=== PATIENT | female | born 1980 | race Caucasian/White ===

== ENCOUNTER 2021-11-26 10:52 | Emergency (ER) | payer OTHER, SELFPAY ==
--- NOTE | 2021-11-26 11:03 | ED.WOUNDLAC ---
HPI - Wound/Laceration General Chief Complaint: Wound/Laceration Stated Complaint: Laceration on head Time Seen by Provider: 11/26/21 11:03 Source: patient, family and RN notes reviewed Mode of arrival: ambulatory Limitations: no limitations History of Present Illness HPI narrative: 41-year-old female presents to the [facility] with a laceration to the top of her head. States that a 2 gallon sprayer bottle fell on the top of her head. Bleeding is controlled. Reports that she is up-to-date on tetanus (2020) Denies any blurry vision or change in vision. Denies any loss of consciousness. Denies headache Related Data Home Medications Medication Instructions Recorded Confirmed escitalopram oxalate [Lexapro] 5 mg PO DAILY 11/26/21 11/26/21 Allergies Allergy/AdvReac Type Severity Reaction Status Date / Time No Known Allergies Allergy Verified 11/26/21 11:11 Review of Systems Review of Systems: All systems reviewed & are unremarkable except as noted in HPI and below Constitutional: Constitutional: Reports no additional constitutional complaints, Denies chills and Denies fever(s) Eyes: Eyes: Reports no additional eye complaints ENT: Reports system reviewed and no additional complaints, except as documented Cardiovascular: Cardiovascular: Reports no additional cardiovascular complaints, Denies chest pain and Denies dyspnea Respiratory: Respiratory: Reports no additional respiratory complaints, Denies cough and Denies dyspnea Gastrointestinal: Gastrointestinal: Reports no additional gastrointestinal complaints, Denies abdominal pain, Denies nausea and Denies vomiting Musculoskeletal: Musculoskeletal: Reports no additional musculoskeletal complaints Integumentary/Breasts: Skin/Breast: Reports as per HPI Comments: Laceration top of head/ scalp Neurologic: Reports system reviewed and no additional complaints, except as documented Psychiatric: Psychiatric: Reports no additional psychiatric complaints Allergic/Immunologic: Allergic/Immunologic: Reports no additional allergic/immunologic complaints PMFSH Past Medical History Medical History (Updated 11/26/21 @ 11:28 by Maritza Baumann) Anxiety Comments At the time of my signature, I reviewed and agree with the nursing past medical, surgical, social, and family history. There is no relevant family history pertinent to the patient complaint. Exam Const: General: healthy appearing, no acute distress and alert Nutritional Appearance: well nourished Orientation/consciousness: patient oriented x3 Limitations: no limitations HENMT: Head: normal to inspection Ears: external ears normal General nose exam: Normal external nose present Face and sinus: normal facial exam Mouth: Yes Normal oral and palatal mucosa present Eyes: Pupils: Equal, round and reactive pupils present Neck: Neck: normal visual inspection, no lymphadenopathy and no meningeal signs Chest: Chest palpation & inspection: normal inspection of the chest Resp: Effort & Inspection: normal respiratory effort and no use of accessory muscles Auscultation: clear to auscultation bilaterally, no crackles, no rales, no rhonchi and no wheezes Cardio: Rate: regular rate Rhythm: regular rhythm : General: Yes no CVA tenderness Back/Spine/Pelvis: Back: no CVA tenderness Skin: General skin exam: normal color Wounds: wounds noted laceration size (1.5); without any surrounding erythema Neuro: General: patient oriented x3, moves all extremities, no meningeal signs and no focal motor deficits Cranial nerves: Yes Equal, round and reactive pupils present Speech: normal speech Gait exam (Neuro): Normal gait present Extrem: General: normal to inspection Psych: Appearance: grossly normal and well kempt Mental Status: mental status grossly normal Affect: normal affect Attitude: cooperative Thought content: Yes Normal thought content present Course Course Emergency Course: Discharge instructions reviewed w
[2021-11-26 11:05] VITALS: BP 123/85; PULSE 72; RESP 16; TEMP 36.8; O2SAT 98
== END 2021-11-26 11:18 | disposition home or self-care (01) ==
PROVIDERS: Emergency Provider Nurse Practitioner
DX: S01.01XA Laceration without foreign body of scalp, initial encounter (principal); W20.8XXA Other cause of strike by thrown, projected or falling object, initial encounter; F41.9 Anxiety disorder, unspecified
CPT/HCPCS: 12001; 99212; G0463

== ENCOUNTER → 2022-03-27 01:47 | Outpatient (CLI) | payer OTHER, SELFPAY ==
[2022-03-27 13:04] LABS: SARS-CoV-2 RNA PCR Negative
== END ==
DX: Z20.822 Contact with and (suspected) exposure to COVID-19 (principal)
CPT/HCPCS: C9803; U0003; U0005

== ENCOUNTER 2022-06-30 10:45 | Outpatient (CLI) | payer OTHER, SELFPAY ==
--- NOTE | ~2022-06-30 | MR_ITS ---
EXAMINATION: MR foot RT wo con DATE: 06/30/2022 11:44 INDICATION: Right forefoot pain TECHNIQUE: Magnetic resonance imaging (MRI) of the right fore/mid foot was performed without intraven ous contrast. Sequences included sagittal T1-weighted FSE, sagittal fluid sensitive FSE STIR, coronal PD-weighted FS FSE, coronal T1-weighted FSE, axial PD-weighted FS FSE, and axial PD-weighted FSE. A marker was placed over the site of maximal pain dorsal to the first and second metatarsals. COMPARISON: None FINDINGS: Bone alignment is normal. Moderate osteoarthritis at the first metatarsophalangeal joint with small m arginal osteophytes at the first metatarsal head, mild subarticular edema-like signal change along po rtions of the dorsal aspect of the first metatarsal head and base of the proximal phalanx. There are also couple small degenerative loose bodies versus heterotopic ossicles along the dorsal joint capsul e. Otherwise normal bone marrow signal throughout. No evident stress reaction, fracture or pathologic marrow replacing process. No erosions to suggest inflammatory arthritis. Additional minimal to mild osteoarthritis at a few of the interphalangeal joints and joints in the midfoot. Lisfranc ligament co mplex, with the collateral ligament complex at the tarsometatarsal and interphalangeal joints are nor mal. Visualized portion of the flexor and extensor tendons and the transiting musculature of the foot are normal. IMPRESSION: 1. Polyarticular osteoarthritis, moderate severity at the first metatarsophalangeal joint and minimal to mild at several additional joints in the right mid and forefoot. Reviewed, dictated and finalized at location A. IMPRESSION: 1. Polyarticular osteoarthritis, moderate severity at the first metatarsophalan geal joint and minimal to mild at several additional joints in the right mid an d forefoot.
== END 2022-06-30 10:46 | disposition home or self-care (01) ==
DX: M19.071 Primary osteoarthritis, right ankle and foot (principal)
CPT/HCPCS: 73718